=== PATIENT | male | born 1980 | race Caucasian/White ===

== ENCOUNTER → 2017-08-13 | Outpatient (CLI) | payer OTHER | LOC: BMCIMAGING 09:21 | PROVIDERS: ATTEND Emergency Medicine | DX: S92.425A Nondisplaced fracture of distal phalanx of left great toe, initial encounter for closed fracture (principal) ==

== ENCOUNTER 2018-04-07 19:25 | Emergency (ER) | payer OTHER ==
[2018-04-07 19:32] VITALS: BP 136/89
--- NOTE | 2018-04-07 19:38 | EDPHY ---
H & P Time Seen by Provider: 04/07/18 19:28 HPI/ROS: CHIEF COMPLAINT: Right wrist injury HISTORY OF PRESENT ILLNESS: Fell on outstretched right wrist today at 2:00 p.m. Skiing. Has some pain with pronation and rotation. Does not have hand elbow or shoulder symptoms. REVIEW OF SYSTEMS: No weakness or numbness in the fingers PAST MEDICAL HISTORY: Vasectomy Social history: Nonsmoker General Appearance: Alert and conversant, cooperative. Right wrist swelling and pain to palpation in the snuffbox. Good range of motion. Distal motor sensory and capillary refill intact. No skin lacerations. Remainder of the hand and forearm and elbow is normal. Emergency Department course/MDM: Right wrist x-ray ordered. 1954: Reviewed with patient, normal. Warned about possible scaphoid injury, thumb-spica splint ordered. Mandatory orthopedic follow-up later this week. Smoking Status: Never smoked Constitutional: Initial Vital Signs Temperature (C) 36.8 C 04/07/18 19:29 Heart Rate 72 04/07/18 19:29 Respiratory Rate 16 04/07/18 19:29 Blood Pressure 136/89 H 04/07/18 19:29 O2 Sat (%) 95 04/07/18 19:29 O2 Delivery Mode Room Air Allergies/Adverse Reactions: No Known Allergies Allergy (Unverified 04/07/18 19:29) Home Medications: Medication Instructions Recorded NK [No Known Home Meds] 04/07/18 MDM/Departure - MDM Imaging Results: Imaging Impressions Wrist X-Ray 04/07/18 19:36 Impression: Negative for fracture. Imaging: I viewed and interpreted images myself - Depart Disposition: Home, Routine, Self-Care Clinical Impression: Unspecified sprain of right wrist, initial encounter Condition: Good Instructions: Wrist Sprain (ED) Additional Instructions: Wear splint. Please follow-up with Orthopedics on or Friday this week to evaluate for the possibility of occult scaphoid fracture. Referrals: Lowell Higgins MD [Medical Doctor] - As per Instructions Kathy Vazquez MD [Primary Care Provider] - As per Instructions Damian Reyes MD [Medical Doctor] - As per Instructions
== END 2018-04-07 20:07 | disposition home or self-care (01) ==
DX: S63.501A Unspecified sprain of right wrist, initial encounter (principal); V00.321A Fall from snow-skis, initial encounter; Y93.23 Activity, snow (alpine) (downhill) skiing, snowboarding, sledding, tobogganing and snow tubing; Y92.828 Other wilderness area as the place of occurrence of the external cause
CPT/HCPCS: L3807

== ENCOUNTER → 2018-04-20 | Outpatient (CLI) | payer OTHER | LOC: BMCIMAGING 08:28 | PROVIDERS: ATTEND Physician Assistant | DX: M24.031 Loose body in right wrist (principal) ==